=== PATIENT | female | born 1995 | race Caucasian/White ===

== ENCOUNTER → 2024-07-23 11:58 | Outpatient (REF) | payer OTHER, SELFPAY ==
[2024-07-25 08:57] LABS: Quantiferon Mitogen minus NIL 9.92 IU/mL; Quantiferon NIL 0.08 IU/mL; Quantiferon TB Gold Plus Negative (Negative)
== END ==
LOC: OHS 11:58
PROVIDERS: ATTENDING PHYSICIAN Nurse Practitioner Family
DX: Z23 Encounter for immunization (principal)
CPT/HCPCS: 36415; 86480